=== PATIENT | male | born 1975 | race Two or more races ===

== ENCOUNTER 2020-06-27 09:36 | Outpatient (CLI) | payer BC, OTHER | END 2020-06-27 23:59 | disposition home or self-care (01) | LOC: MSC 09:36 | PROVIDERS: ATTEND Internal Medicine | DX: R07.9 Chest pain, unspecified (principal); M54.2 Cervicalgia; M54.9 Dorsalgia, unspecified; G47.30 Sleep apnea, unspecified; Z87.891 Personal history of nicotine dependence ==